=== PATIENT | female | born 1970 | race Caucasian/White ===

== ENCOUNTER 2016-11-28 22:08 | Emergency (ER) | payer OTHER ==
[2016-11-28 22:27] VITALS: BP 142/88; PULSE 77; TEMP 98; BMI 35.9
--- NOTE | 2016-11-28 23:06 | PDOC ---
Attending Attestation - Resident Resident Name: Mike Duque - ED Attending Attestation I have performed the following: I have examined & evaluated the patient, The case was reviewed & discussed with the resident, I agree w/resident's findings & plan, Exceptions are as noted
[2016-11-28] MEDS ORDERED: CLINDAMYCIN 900 MG PREMIX IVPB 50 ML IVPB ONE ×3 (23:21→23:31)
[2016-11-28] MEDS ORDERED: morphine CARPU-JECT 4 MG/1 ML DISP.SYRIN IVPUSH ONE (23:21)
--- NOTE | 2016-11-28 23:22 | PDOC ---
History of Present Illness - General Chief Complaint: Abscess Boil Stated Complaint: ABSSESS BOIL Time Seen by Provider: 11/28/16 22:47 - History of Present Illness Initial Comments: 11/28/16 23:17 Patient is a 46 year old female who presents for evaluation of a left inner thigh abscess. The patient reports a lesion for over 5 days with associated pain and redness to the area. The pain had gotten progressively worse and the lesion began draining pus prompting the presentation to the ED today. The patient denies fevers, chills, SOB, chest pain, abdominal pain, or changes with bowel movements or urination. Past History - Past Medical History Allergies/Adverse Reactions: Allergies Allergy/AdvReac Type Severity Reaction Status Date / Time No Known Allergies Allergy Verified 11/28/16 22:25 Home Medications: Ambulatory Orders Sulfamethoxazole/Trimethoprim [Bactrim Ds -] 1 tab PO BID #14 tablet 11/29/16 Diabetes: Yes HTN: Yes Hypercholesterolemia: Yes - Surgical History Cholecystectomy: Yes - Psycho/Social/Smoking Cessation Hx Suicidal Ideation: No Smoking History: Never smoked Information on smoking cessation initiated: No Hx Alcohol Use: No Drug/Substance Use Hx: No Substance Use Type: None Review of Systems - Review of Systems Constitutional: No: Chills, Fever Respiratory: No: Cough, Shortness of Breath Cardiac (ROS): No: Chest Pain, Palpitations ABD/GI: No: Constipated, Diarrhea, Nausea, Vomiting : No: Burning, Dysuria Integumentary: Yes: Erythema, Lesions. No: Rash Neurological: No: Headache, Numbness, Tingling, Weakness *Physical Exam - Vital Signs Last Vital Signs Temp Pulse Resp BP Pulse Ox 98.0 F 77 20 142/88 100 11/28/16 22:25 11/28/16 22:25 11/28/16 22:25 11/28/16 22:25 11/28/16 22:25 - Physical Exam Comments: 11/28/16 23:34 General Appearance: Nourished. No Apparent Distress Respiratory/Chest: Lungs Clear, Normal Breath Sounds. No Crackles, Rales, Rhonchi, Wheezing Cardiovascular: Regular Rhythm, Regular Rate. No Murmur, Gallop/S3, Gallop/S4 Gastrointestinal/Abdominal: Normal Bowel Sounds, Soft. No Guarding, Rebound, Tenderness Extremity: 4-5 cm lesion draining purulent fluid with surrounding erythema to the inner left thigh extending from the inguinal crease to just before the knee. Integumentary: Normal Color, Dry, Warm Neurologic: Fully Oriented, Alert, Normal Mood/Affect, Normal Response Procedures - Incision and Drainage I&D Site: Left: Leg Anesthesia: 1% Lidocaine Blade Size: 11 Iodinated Packin/ in Complications: none Dressing: Yes Medical Decision Making - Medical Decision Making 11/28/16 23:35 Patient is a 46 year old female who presents with concerns for a left inner thigh abscess. Given the patient's physical exam, it appears that there is a 4- 5 cm abscess just below the inguinal crease with surround cellulitis. We will drain the abscess here in the ED and give the patient a dose of IV clindamycin here as well. 11/30/16 10:36 I&D successful. We feel comfortable discharging the patient home at this time on Bactrim. We discussed the plan with the patient and she is agreeable with the plan. *DC/Admit/Observation/Transfer Diagnosis at time of Disposition: Abscess - Discharge Dispostion Disposition: HOME Condition at time of disposition: Improved Admit: No - Prescriptions Prescriptions: Sulfamethoxazole/Trimethoprim [Bactrim Ds -] 1 tab PO BID #14 tablet - Referrals - Patient Instructions Printed Discharge Instructions: DI for Incision and Drainage of a Skin Abscess Additional Instructions: Please return to the ER if you experience concerning or worsening symptoms. Please return to the ER in 2 days to have your wound checked and reevaluated. We have sent a prescription for antibiotics to the pharmacy. Please take twice a day for 7 days. - Attestations Physician Attestion: 11/29/16 00:14 I, Dr. Mike Duque, attest that this document has been prepared under my direction and personally reviewed by me in its entirety. I further attest, that it accurately reflects all work, treatment, procedures and medical decision -making performed by me.
[2016-11-28] MEDS ORDERED: morphine CARPU-JECT 4 MG/1 ML DISP.SYRIN ONE (23:29)
[2016-11-28] MEDS ORDERED: ONDANSETRON 4 MG/2 ML VIAL IVPUSH ONE (23:47)
[2016-11-28] MEDS ORDERED: ONDANSETRON 4 MG/2 ML VIAL ONE (23:47)
== END 2016-11-29 00:27 | disposition home or self-care (01) ==
LOC: JER 22:08
PROC: 0H9JXZZ Drainage of Left Upper Leg Skin, External Approach (ICD-10-PCS; principal; 2016-11-28)
PROC: 3E03329 Introduction of Other Anti-infective into Peripheral Vein, Percutaneous Approach (ICD-10-PCS; 2016-11-28)
PROC: 3E033NZ Introduction of Analgesics, Hypnotics, Sedatives into Peripheral Vein, Percutaneous Approach (ICD-10-PCS; 2016-11-28)
PROC: 3E033GC Introduction of Other Therapeutic Substance into Peripheral Vein, Percutaneous Approach (ICD-10-PCS; 2016-11-28)
DX: L02.416 Cutaneous abscess of left lower limb (principal); E11.9 Type 2 diabetes mellitus without complications; I10 Essential (primary) hypertension; E78.00 Pure hypercholesterolemia, unspecified
CPT/HCPCS: 99282-25

== ENCOUNTER 2016-11-30 11:56 | Emergency (ER) | payer OTHER ==
[2016-11-30 12:05] VITALS: BP 138/68; PULSE 70; TEMP 98.1; BMI 35.8
--- NOTE | 2016-11-30 12:38 | PDOC ---
Suture Removal/Wound Check HPI - History of Present Illness Chief Complaint: Revisit,Wound Recheck Stated Complaint: REVISIT Time Seen by Provider: 11/30/16 12:26 History Source: Yes: Patient Exam Limitations: Yes: No Limitations Treated at: [facility] Date of Last ED visit: 11/29/16 - Previous ED Treatment Type of procedure performed on last visit: Yes: I&D of Abscess (left inner thigh ) Tetanus Immunization: Yes: Up to Date Past History - Past Medical History Allergies/Adverse Reactions: Allergies No Known Allergies Allergy (Verified 11/30/16 12:02) Home Medications: Ambulatory Orders Sulfamethoxazole/Trimethoprim [Bactrim Ds -] 1 tab PO BID #14 tablet 11/29/16 General: Yes: diabetes Surgical History: Yes: No Surgical History Psych History: Yes: No Pertinent Psych Hx. - Immunization History Tetanus Status: Unknown - Social History Smoking Status: Never smoked Suture Removal/Wound Check PE - Physical Exam Laceration/Wound Check Symptoms: reports: Improved Comments: 11/30/16 12:41 left inner thigh with healing abscess, scant drainage will remove the packing and redress Pain Intensity: 3 Current Severity Level: Mild Maximum Severity Level: Severe (left inner thigh with packing placed yesterday) Comments: 11/30/16 12:44 left inner thigh with scant amount of serous drainage from abscess that was drained on the gauze, packing removed, redressed wound is clean and dry *Review of Systems - Review of Systems Able to Perform ROS?: Yes Constitutional: No: Symptoms Reported HEENTM: No: Symptoms Reported Respiratory: No: Symptoms reported Cardiac (ROS): No: Symptoms Reported ABD/GI: No: Symptoms Reported : No: Symptoms Reported Musculoskeletal: No: Symptoms Reported Integumentary: Yes: See HPI Medical Decision Making - Medical Decision Making 11/30/16 12:42 cc: packing removal to abscess drained yesterday to left inner thigh pt taking bactrim as prescribed pt states no fever or chills pt states the pain has improved and the wound looks "much better" redness surrounding the area has improved will remove packing and redress, refer to surgery for outpt follow up pt and her friend understand the plan and agree with the plan of care . *DC/Admit/Observation/Transfer Diagnosis at time of Disposition: Wound check, abscess - Discharge Dispostion Disposition: HOME Condition at time of disposition: Good - Referrals Referrals: STAFF,NOT ON [Primary Care Provider] - Taqueria Owens MD [Staff Physician] - [facility] [Provider Group] - Patient Instructions Additional Instructions: please follow with the surgeon to have the abscess re-evaluated it may need to be drained again , call today to make appointment keep dry apply warm compresses to the area every 3hrs for 20 minutes finish all the antibiotics you are taking
== END 2016-11-30 12:48 | disposition home or self-care (01) ==
LOC: JERFT 11:56
DX: Z48.01 Encounter for change or removal of surgical wound dressing (principal)
CPT/HCPCS: 99281-25